=== PATIENT | female | born 1945 | race Caucasian/White ===

== ENCOUNTER → 2017-06-20 | Outpatient (CLI) | payer MEDICARE, BC ==
[2017-06-20 12:11] LABS: HCT 40.9 % (34.0-46.0); HGB 13.2 gm/dL (11.4-16.0); MCH 29.5 pg (25.0-35.0); MCHC 32.3 g/dL (31.0-37.0); MCV 91.4 fL (80.0-100.0); Mean Platelet Volume 7.9; Platelet Count 295 k/uL (150-450); RBC 4.48 m/uL (3.80-5.40); WBC 7.4 k/uL (3.8-10.6)
[2017-06-20 12:25] LABS: Calcium 9.4 mg/dL (8.4-10.2); Potassium 4.5 mmol/L (3.5-5.1); Total Bilirubin 0.4 mg/dL (0.2-1.3); Total Protein 6.6 g/dL (6.3-8.2)
[2017-06-20 12:28] LABS: Appearance,Urine Cloudy (Clear); Bacteria,Urine Rare /hpf; Bilirubin,Urine Negative (Negative); Blood,Urine Negative (Negative); Color,Urine Yellow; Glucose,Urine (UA) Negative (Negative); Hyaline Casts,Urine 3 /lpf (0-2); Ketones,Urine Negative (Negative); Leukocyte Esterase,Urine Large (Negative); Mucus,Urine Rare /hpf; Nitrite,Urine Negative (Negative); PH, Urine 5.5 (5.0-8.0); Protein,Urine Trace (Negative); RBC,Urine 1 /hpf (0-5); Squamous Epithelial Cell,Urine 5 /hpf (0-4); WBC,Urine 19 /hpf (0-5)
[2017-06-20 12:30] LABS: INR 0.9 (<1.2); Prothrombin Time 9.4 sec (9.0-12.0)
[2017-06-20 12:35] LABS: Partial Thromboplastin Time 20.5 sec (22.0-30.0)
== END | disposition home or self-care (01) ==
LOC: LABWHC1 11:10
PROVIDERS: ATTEND Orthopaedic Surgery
DX: Z01.812 Encounter for preprocedural laboratory examination (principal)
CPT/HCPCS: 36415; 80053; 81001; 85027; 85610; 85730; 87070

== ENCOUNTER 2017-07-10 10:55 | Inpatient (IN) | payer MEDICARE, BC ==
[2017-07-02 13:06] VITALS: BMI 34.4
[2017-07-13] MEDS ORDERED: ceFAZolin IN SWFI 2 GM/20 ML SYRINGE IVP ONE (05:00)
[2017-07-13] MEDS ORDERED: HYDROmorphone 0.5 MG/0.5 ML SYRINGE IVP PRN (05:46)
[2017-07-13] MEDS ORDERED: MIDAZOLAM 2 MG/2 ML VIAL IV PRN (05:46)
[2017-07-13] MEDS ORDERED: LIDOCAINE 1% 20 ML VIAL (10MG/ML) FOR IV START INTRADERMA PRN (05:46)
[2017-07-13] MEDS ORDERED: ONDANSETRON 4 MG/2 ML VIAL IVP ONE (05:46)
[2017-07-13] MEDS ORDERED: SCOPOLAMINE 1.5MG/72HR PATCH TRANSDERM ONE (05:46)
[2017-07-13] MEDS ORDERED: DEXAMETHASONE SOD PHOSPHATE 10 MG/ML 1 ML VIAL IV ONE (05:46)
[2017-07-13] MEDS: LACTATED RINGERS 1,000 ML IV SCH ×3 (06:58→21:17)
[2017-07-13] MEDS ORDERED: HYDROmorphone (PF) 1 MG/ML ONE (07:47)
[2017-07-13] MEDS ORDERED: ePHEDrine SULFATE/0.9% NACL/PF 50 MG/5 ML SYRINGE IV ONE (07:47)
[2017-07-13] MEDS ORDERED: MIDAZOLAM 2 MG/2 ML VIAL ONE (07:47)
[2017-07-13] MEDS ORDERED: PROPOFOL 10 MG/ML 20 ML VIAL IV ONE (07:47)
[2017-07-13] MEDS ORDERED: fentaNYL (PF) 50 MCG/ML 2 ML AMP ONE (07:47)
[2017-07-13] MEDS ORDERED: ceFAZolin 3,000 MG in SODIUM CHLORIDE 0.9% IRRIGATIO 3,000 ML IRRIGATION ONE (08:33)
[2017-07-13] MEDS ORDERED: LACTATED RINGERS 1,000 ML IV ONE (08:52)
[2017-07-13] MEDS ORDERED: ONDANSETRON 4 MG/2 ML VIAL IVP PRN (10:23)
[2017-07-13] MEDS ORDERED: HYDROcodone/APAP 5-325MG 1 EACH TAB PO PRN (10:23)
[2017-07-13] MEDS ORDERED: MORPHINE SULFATE 2 MG/ML SYRINGE IVP PRN ×3 (10:23)
[2017-07-13] MEDS ORDERED: ACETAMINOPHEN TAB 325 MG TAB PO PRN (10:23)
[2017-07-13] MEDS ORDERED: NA PHOS,M-B/NA PHOS,DI-BA 133 ML ENEMA RECTAL PRN (10:23)
[2017-07-13] MEDS ORDERED: hydrOXYzine PAMOATE 25 MG CAP PO PRN (10:23)
[2017-07-13] MEDS ORDERED: BISACODYL 10 MG SUPP RECTAL PRN (10:23)
[2017-07-13] MEDS ORDERED: TEMAZEPAM 15 MG CAP PO PRN (10:23)
[2017-07-13] MEDS ORDERED: MAGNESIUM HYDROXIDE 2,400 MG/10 ML CUP PO PRN (10:23)
[2017-07-13] MEDS ORDERED: NALOXONE 0.4 MG/ML 1 ML VIAL IV PRN (10:23)
[2017-07-13] MEDS: fentaNYL (PF) 50 MCG/ML 2 ML AMP IVP ONE ×2 (10:30→10:39)
--- NOTE | 2017-07-13 10:40 | XR ---
EXAMINATION TYPE: XR knee limited LT DATE OF EXAM: 07/13/2017 CLINICAL HISTORY: Left knee pain and arthritis status post total knee replacement. TECHNIQUE: Portable AP and crosstable lateral views of the left knee are obtained immediately postop eratively. COMPARISON: None FINDINGS: [place] osseous structures are demineralized. Metallic hardware from total left knee arthro plasty is seen and appears satisfactory in alignment and position. There is evidence of recent surge ry with diffuse subcutaneous gas and soft tissue swelling noted. Posterior vascular calcification is incidentally seen IMPRESSION: METALLIC HARDWARE FROM TOTAL LEFT KNEE ARTHROPLASTY IS SATISFACTORY IN ALIGNMENT.
[2017-07-13] MEDS: HYDROcodone/APAP 5-325MG 1 EACH TAB PO PRN ×2 (14:29→21:15)
--- NOTE | 2017-07-13 17:08 | P.CONS ---
History of Present Illness - Reason for Consult Recommendations regarding hypertensive medications. - History of Present Illness Patient is a pleasant 71-year-old female admitted for left knee arthroplasty successfully underwent surgery patient denied any pain in the knee. Patient did not pass gas yet did not move her bowel yet. Patient is otherwise clinically doing well without any symptoms. Patient the blood pressure is on the low normal side which is expected post surgery but had systolics as still as low as 90s patient is receiving IV fluids. Patient is on lisinopril and hydrocodone for his accommodation for hypertension. Upon extensive history from the patient it does not appear patient has any essential hypertension patient blood pressure is always low at home. Patient appears to have whitecoat hypertension along with blood pressure elevation when she was depressed after her son's . I do not believe patient will need to be treated for whitecoat hypertension or anxiety with any antidepressant medications as of now she is not requiring any antidepressive medications and even after discharge I do not believe she'll require any antidepressive medications. Patient will be advised to check the blood pressure at home. And discontinue antidepressive medications at this time. Review of Systems REVIEW OF SYSTEMS: CONSTITUTIONAL: No fever, no malaise, no fatigue. HEENT: No recent visual problems or hearing problems. Denied any sore throat. CARDIOVASCULAR: No chest pain, orthopnea, PND, no palpitations, no syncope. PULMONARY: No shortness of breath, no cough, no hemoptysis. GASTROINTESTINAL: No diarrhea, no nausea, no vomiting, no abdominal pain. Normoactive bowel sounds. NEUROLOGICAL: No headaches, no weakness, no numbness. HEMATOLOGICAL: Denies any bleeding or petechiae. GENITOURINARY: Denies any burning micturition, frequency, or urgency. MUSCULOSKELETAL/RHEUMATOLOGICAL: Denies any joint pain, swelling, or any muscle pain. ENDOCRINE: Denies any polyuria or polydipsia. The rest of the 14-point review of systems is negative. Past Medical History Past Medical History: Hypertension, Osteoarthritis (OA) Additional Past Medical History / Comment(s): KIDNEY DISEASE. RECENT ANTIBIOTICS FOR UTI FROM 06/20/17 History of Any Multi-Drug Resistant Organisms: None Reported Past Surgical History: Hysterectomy Additional Past Surgical History / Comment(s): total left knee arthroplasty Past Anesthesia/Blood Transfusion Reactions: Motion Sickness Past Psychological History: No Psychological Hx Reported Smoking Status: Never smoker Past Alcohol Use History: None Reported Past Drug Use History: None Reported - Past Family History Mother Family Medical History: No Reported History Medications and Allergies Home Medications Medication Instructions Recorded Confirmed Type Aspirin 650 mg PO BID 07/02/17 07/13/17 History Cholecalciferol [Vitamin D3] 1,000 unit PO DAILY 07/02/17 07/13/17 History Glucosam/Chond/Hyalu/Cf Borate 1 tab PO DAILY 07/02/17 07/13/17 History [Move Free Joint Health Tablet] Lisinopril-Hctz 10-12.5 mg 1 tab PO DAILY 07/02/17 07/13/17 History [Zestoretic 10-12.5] Powers-3 Fatty Acids [[place]-3] 1,000 mg PO DAILY 07/02/17 07/13/17 History Vitamin B Complex 1 cap PO DAILY 07/02/17 07/13/17 History Acetaminophen Tab [Tylenol Tab] 650 mg PO Q4H PRN 07/13/17 07/13/17 History Aspirin 325 mg PO DAILY #30 tab 07/13/17 Rx HYDROcodone/APAP 5-325MG [[place] 5] 1 - 2 each PO Q4-6H PRN #90 tab 07/13/17 Rx Sennosides-Docusate Sodium 2 tab PO DAILY #30 tablet 07/13/17 Rx [Senokot-S] Warfarin [Coumadin] 2.5 mg PO DIRECTED #30 tab 07/13/17 Rx Allergies Allergy/AdvReac Type Severity Reaction Status Date / Time carvedilol [From Coreg] Allergy Rash/Hives Verified 07/13/17 07:05 cocamidopropyl betaine Allergy blisters Verified 07/13/17 06:34 gold sodium thiomalate Allergy blisters Verified 07/13/17 06:34 nickel Allergy blisters Verified 07/13/17 06:34 Physical Exam Vitals: Vital Signs Temp Pulse Pulse Resp BP BP Pulse Ox 07/13/17 14:55 97.4 F L 94 18 96/61 07/13/17 13:51 97.5 F L 84 16 105/63 07/13/17 13:30 84 105/63 07/13/17 13:15 86 96/56 07/13/17 13:00 87 97/65 07/13/17 12:45 93 99/68 07/13/17 12:30 89 120/71 07/13/17 12:15 89 119/73 07/13/17 12:00 81 113/73 07/13/17 11:45 88 119/75 07/13/17 11:30 97.3 F L 93 16 105/72 99 07/13/17 11:05 85 16 104/56 99 07/13/17 10:50 91 16 111/56 100 07/13/17 10:35 82 16 115/58 99 07/13/17 10:20 96.9 F L 83 16 115/59 97 07/13/17 06:53 98 F 68 16 137/68 99 Intake and Output 07/13/17 07/13/17 07/13/17 06:59 14:59 22:59 Intake Total 100 1701 Output Total 425 Balance 100 1276 Intake: IV 100 1701 Lactated Ringers 1,000 ml 200 @ 100 mls/hr IV .Q10H LETY Rx#:[id number] Output: Urine 400 Estimated Blood Loss 25 Other: Weight 99.79 kg PHYSICAL EXAMINATION: GENERAL: The patient is alert and oriented x3, not in any acute distress. Well developed, well nourished. HEENT: Pupils are round and equally reacting to light. EOMI. No scleral icterus. No conjunctival pallor. Normocephalic, atraumatic. No pharyngeal erythema. No thyromegaly. CARDIOVASCULAR: S1 and S2 present. No murmurs, rubs, or gallops. PULMONARY: Chest is clear to auscultation, no wheezing or crackles. ABDOMEN: Soft, nontender, nondistended, normoactive bowel sounds. No palpable organomegaly. MUSCULOSKELETAL: Deferred to orthopedic surgery EXTREMITIES: No cyanosis, clubbing, or pedal edema. NEUROLOGICAL: Gross neurological examination did not reveal any focal deficits. SKIN: No rashes. Assessment and Plan Plan: -Hypertension: Patient is presently hypotensive I do not believe patient has essential hypertension further management as mentioned above continue with IV fluids discontinue antidepressive medications. -Severe osteoarthritis for which patient underwent left knee arthroplasty due to prophylaxis and pain management as per primary service as patient is already receiving Coumadin or disc in your aspirin upon discharge.
[2017-07-13] MEDS: ceFAZolin IN SWFI 2 GM/20 ML SYRINGE IVP SCH (17:31)
[2017-07-13] MEDS ORDERED: WARFARIN 5 MG TAB PO SCH (18:00)
[2017-07-13] MEDS: SENNOSIDES-DOCUSATE SODIUM 1 EACH TAB PO SCH (21:16)
[2017-07-14] MEDS: ceFAZolin IN SWFI 2 GM/20 ML SYRINGE IVP SCH (02:01)
[2017-07-14] MEDS: HYDROcodone/APAP 5-325MG 1 EACH TAB PO PRN ×4 (05:01→17:37)
[2017-07-14 08:00] LABS: INR 1.6 (<1.2); Prothrombin Time 14.4 sec (9.0-12.0)
[2017-07-14 08:10] LABS: Basophils % (A) 0 %; Eosinophils % (A) 0 %; HCT 31.1 % (34.0-46.0); Lymphocytes # (A) 1.1 k/uL (1.0-4.8); Lymphocytes % (A) 11 %; MCH 30.4 pg (25.0-35.0); MCHC 32.3 g/dL (31.0-37.0); MCV 94.2 fL (80.0-100.0); Mean Platelet Volume 7.3; Monocytes % (A) 9 %; Neutrophils % (A) 78 %; Platelet Count 231 k/uL (150-450); RDW 14.6 % (11.5-15.5); WBC 10.2 k/uL (3.8-10.6)
[2017-07-14] MEDS: LACTATED RINGERS 1,000 ML IV SCH ×3 (10:23→18:06)
--- NOTE | 2017-07-14 12:23 | P.PN ---
Subjective Progress Note Date: 07/14/17 Principal diagnosis: Left TKA Patient is seen at bedside this morning. She is postop day #1 from Left Total Knee arthroplasty. She has pain at the surgical site as expected but denies any new complaints. She denies numbness, tingling or calf pain. Review of systems is negative for fever, chills, chest pain, shortness of breath or other Objective - Vital Signs Vital signs: Vital Signs Temp 98.5 F 07/14/17 09:00 Pulse 79 07/14/17 09:00 Resp 18 07/14/17 07:54 BP 100/61 07/14/17 09:00 Pulse Ox 93 L 07/14/17 07:00 Intake & Output 07/13/17 07/14/17 07/14/17 18:59 06:59 18:59 Intake Total 1701 Output Total 425 Balance 1276 Weight 99.79 kg 99.79 kg Intake: IV 1701 Lactated Ringers 1,000 ml 200 @ 100 mls/hr IV .Q10H LETY Rx#:[id number] Output: Urine 400 Estimated Blood Loss 25 Other: # Voids 3 - Exam Inspection reveals a benign surgical wound. There is no active bleeding or drainage. Neurovascular status is intact throughout the lower extremity with motor and sensation fully intact. Calf is soft and nontender. 2+ dorsalis pedis pulse and less than 2 second cap refill is present - Constitutional General appearance: Present: no acute distress - Psychiatric Psychiatric: Present: A&O x's 3, appropriate affect, intact judgment & insight - Labs CBC & Chem 7: 07/14/17 07:11 Labs: Abnormal Lab Results - Last 24 Hours (Table) 07/14/17 07/14/17 Range/Units 07:11 07:11 RBC 3.30 L (3.80-5.40) m/uL Hgb 10.0 L D (11.4-16.0) gm/dL Hct 31.1 L (34.0-46.0) % Neutrophils # 8.0 H (1.3-7.7) k/uL PT 14.4 H (9.0-12.0) sec INR 1.6 H (<1.2) Assessment and Plan (1) S/P total knee arthroplasty Narrative/Plan: She will continue with routine postop orthopedic protocol including pain management, wound care, physical therapy, DVT prophylaxis and medical management. Expect that she will transfer to rehab in next few days. Current Visit: Yes Status: Acute Priority: Medium Code(s): Z96.659 - PRESENCE OF UNSPECIFIED ARTIFICIAL KNEE JOINT SNOMED Code(s): 8559360841279 Time with Patient: Less than 30
--- NOTE | 2017-07-14 13:19 | P.PN ---
Subjective No overnight events patient is clinically doing well blood pressure remains in 100s systolic I do not believe patient will need any antidepressant medications upon discharge. Constitutional: Denied any fatigue denied any fever. Cardio vascular: denied any chest pain, palpitations Gastrointestinal denied any nausea vomiting Pulmonary: Denied any shortness of breath cough Neurologic denied any new focal deficits Objective - Vital Signs Vital signs: Vital Signs Temp 98.5 F 07/14/17 09:00 Pulse 79 07/14/17 09:00 Resp 18 07/14/17 07:54 BP 100/61 07/14/17 09:00 Pulse Ox 93 L 07/14/17 07:00 Intake & Output 07/13/17 07/14/17 07/14/17 18:59 06:59 18:59 Intake Total 1701 Output Total 425 Balance 1276 Weight 99.79 kg 99.79 kg Intake: IV 1701 Lactated Ringers 1,000 ml 200 @ 100 mls/hr IV .Q10H LETY Rx#:[id number] Output: Urine 400 Estimated Blood Loss 25 Other: # Voids 3 - Exam PHYSICAL EXAMINATION: GENERAL: The patient is alert and oriented x3, not in any acute distress. Well developed, well nourished. HEENT: Pupils are round and equally reacting to light. EOMI. No scleral icterus. No conjunctival pallor. Normocephalic, atraumatic. No pharyngeal erythema. No thyromegaly. CARDIOVASCULAR: S1 and S2 present. No murmurs, rubs, or gallops. PULMONARY: Chest is clear to auscultation, no wheezing or crackles. ABDOMEN: Soft, nontender, nondistended, normoactive bowel sounds. No palpable organomegaly. MUSCULOSKELETAL: Deferred to orthopedic surgery EXTREMITIES: No cyanosis, clubbing, or pedal edema. NEUROLOGICAL: Gross neurological examination did not reveal any focal deficits. SKIN: No rashes. - Labs CBC & Chem 7: 07/14/17 07:11 Labs: Abnormal Lab Results - Last 24 Hours (Table) 07/14/17 07/14/17 Range/Units 07:11 07:11 RBC 3.30 L (3.80-5.40) m/uL Hgb 10.0 L D (11.4-16.0) gm/dL Hct 31.1 L (34.0-46.0) % Neutrophils # 8.0 H (1.3-7.7) k/uL PT 14.4 H (9.0-12.0) sec INR 1.6 H (<1.2) Assessment and Plan Plan: -Hypertension: Patient is presently hypotensive I do not believe patient has essential hypertension further management as mentioned above continue with IV fluids discontinue antidepressive medications. -Severe osteoarthritis for which patient underwent left knee arthroplasty due to prophylaxis and pain management as per primary service as patient is already receiving Coumadin, aspirin can be discussed in your upon discharge, unless recommended by orthopedic surgery
[2017-07-14] MEDS ORDERED: WARFARIN 5 MG TAB PO ONE (18:00)
[2017-07-14 20:20] VITALS: RESP 16
[2017-07-14] MEDS: SENNOSIDES-DOCUSATE SODIUM 1 EACH TAB PO SCH (20:32)
[2017-07-15] MEDS: HYDROcodone/APAP 5-325MG 1 EACH TAB PO PRN ×4 (00:05→19:23)
[2017-07-15] MEDS: LACTATED RINGERS 1,000 ML IV SCH ×6 (02:34→23:28)
[2017-07-15 07:05] LABS: INR 2.2 (<1.2); Prothrombin Time 20.1 sec (9.0-12.0)
--- NOTE | 2017-07-15 12:42 | P.PN ---
Subjective Progress Note Date: 07/15/17 Principal diagnosis: Left TKA Patient is seen at bedside this morning. She is postop day #2 from Left Total Knee arthroplasty. She has pain at the surgical site as expected but denies any new complaints. She denies numbness, tingling or calf pain. Review of systems is negative for fever, chills, chest pain, shortness of breath or other Objective - Vital Signs Vital signs: Vital Signs Temp 98.1 F 07/15/17 07:00 Pulse 78 07/15/17 07:00 Resp 16 07/15/17 07:00 BP 99/63 07/15/17 07:00 Pulse Ox 96 07/15/17 07:00 Intake & Output 07/14/17 07/15/17 07/15/17 18:59 06:59 18:59 Intake Total 1000 1700 180 Balance 1000 1700 180 Weight 99.79 kg Intake: Intake, IV Titration 500 1200 Amount Lactated Ringers 1,000 ml 500 1200 @ 100 mls/hr IV .Q10H LETY Rx#:[id number] Oral 500 500 180 Other: # Voids 3 1 - Exam Inspection reveals a benign surgical wound. There is no active bleeding or drainage. Neurovascular status is intact throughout the lower extremity with motor and sensation fully intact. Calf is soft and nontender. 2+ dorsalis pedis pulse and less than 2 second cap refill is present - Constitutional General appearance: Present: no acute distress - Labs CBC & Chem 7: 07/14/17 07:11 Labs: Abnormal Lab Results - Last 24 Hours (Table) 07/15/17 Range/Units 06:44 PT 20.1 H (9.0-12.0) sec INR 2.2 H (<1.2) Assessment and Plan (1) S/P total knee arthroplasty Narrative/Plan: She will continue with routine postop orthopedic protocol including pain management, wound care, physical therapy, DVT prophylaxis and medical management. Expect that she will transfer to rehab in next few days. Current Visit: Yes Status: Acute Priority: Medium Code(s): Z96.659 - PRESENCE OF UNSPECIFIED ARTIFICIAL KNEE JOINT SNOMED Code(s): 3752831705884 Time with Patient: Less than 30
--- NOTE | 2017-07-15 13:52 | US ---
EXAMINATION TYPE: US venous doppler duplex LE LT DATE OF EXAM: 07/15/2017 1:46 PM COMPARISON: NONE CLINICAL HISTORY: calf pain. History of left knee surgery 2 days ago. SIDE PERFORMED: Left TECHNIQUE: The lower extremity deep venous system is examined utilizing real time linear array sonog som with graded compression, doppler sonography and color-flow sonography. VESSELS IMAGED: External Iliac Vein (EIV) Common Femoral Vein Deep Femoral Vein Greater Saphenous Vein * Femoral Vein Popliteal Vein Small Saphenous Vein * Proximal Calf Veins, not well seen due to body habitus and swelling (* superficial vessels) Patient of large body habitus with leg swelling. Left Leg: Negative for DVT Grayscale, color doppler, spectral doppler imaging performed of the deep veins of the left lower ext remity. There is normal flow, compressibility, vascular waveforms. IMPRESSION: Suboptimal study without convincing evidence for acute DVT in the left lower extremity.
[2017-07-15] MEDS ORDERED: WARFARIN 2.5 MG TAB PO ONE (18:00)
[2017-07-15] MEDS: SENNOSIDES-DOCUSATE SODIUM 1 EACH TAB PO SCH (19:33)
[2017-07-16 00:05] VITALS: PULSE 85
[2017-07-16] MEDS: HYDROcodone/APAP 5-325MG 1 EACH TAB PO PRN ×2 (02:51→09:14)
[2017-07-16 07:01] LABS: Basophils % (A) 0 %; Eosinophils # (A) 0.3 k/uL (0-0.7); Eosinophils % (A) 3 %; HCT 27.9 % (34.0-46.0); Lymphocytes # (A) 1.9 k/uL (1.0-4.8); Lymphocytes % (A) 19 %; MCH 30.3 pg (25.0-35.0); MCHC 32.1 g/dL (31.0-37.0); MCV 94.3 fL (80.0-100.0); Mean Platelet Volume 7.1; Monocytes % (A) 10 %; Neutrophils # (A) 6.4 k/uL (1.3-7.7); Neutrophils % (A) 66 %; Platelet Count 219 k/uL (150-450); RBC 2.96 m/uL (3.80-5.40); RDW 14.7 % (11.5-15.5); WBC 9.8 k/uL (3.8-10.6)
[2017-07-16 07:07] LABS: INR 1.9 (<1.2); Prothrombin Time 17.4 sec (9.0-12.0)
--- NOTE | 2017-07-16 08:37 | P.DS ---
Providers Date of admission: 07/13/17 06:17 Expected date of discharge: 07/16/17 Attending physician: Akshat Narvaez Consults: 07/13/17 10:23 Consult Physician Routine Consulting Provider: Fransico Busch Consult Reason/Comments: medical management Do you want consulting provider notified?: Yes Primary care physician: Stated None - Discharge Diagnosis(es) (1) Primary osteoarthritis of left knee Current Visit: Yes Status: Acute (2) Status post left knee replacement Current Visit: Yes Status: Acute Hospital Course: This is a pleasant 71-year-old female last seen in our office with complaints of left knee pain. Patient has known history of degenerative arthritis of the left knee and presented to discuss options. After discussion and consideration , the patient elected to proceed with a left total knee arthroplasty. Patient was seen preoperatively, and medically cleared for surgery by her primary care physician. Patient was admitted to [facility] underwent left total knee arthroplasty on 07/13/[address] Narvaez. The procedure was performed without complications or sequelae. The patient is seen and evaluated at bedside today. Pain is well-controlled. Patient has no new complaints today and denies any fevers, chills, nausea, vomiting, or shortness of breath. Vital signs are stable. Dressing is clean dry and intact. Incision looks fine with no erythema or active drainage. Calf is soft and nontender. Patient has full foot and ankle motion without difficulty. Patient's left lower extremity is neurovascularly intact. The patient is orthopedically stable for discharge today. Pertinent Studies: Laboratory Tests 07/16/17 07/16/17 06:27 06:27 WBC 9.8 RBC 2.96 L Hgb 9.0 L Hct 27.9 L PT 17.4 H INR 1.9 H Patient Condition at Discharge: Stable Plan - Discharge Summary Discharge Rx Participant: Yes New Discharge Prescriptions: New Aspirin 325 mg PO DAILY #30 tab HYDROcodone/APAP 5-325MG [[place] 5] 1 - 2 each PO Q4-6H PRN #90 tab PRN Reason: Pain Sennosides-Docusate Sodium [Senokot-S] 2 tab PO DAILY #30 tablet Warfarin [Coumadin] 2.5 mg PO DIRECTED #30 tab Discontinued Lisinopril-Hctz 10-12.5 mg [Zestoretic 10-12.5] 1 tab PO DAILY Aspirin 650 mg PO BID No Action Cholecalciferol [Vitamin D3] 1,000 unit PO DAILY Vitamin B Complex 1 cap PO DAILY [place]-3 Fatty Acids [[place]-3] 1,000 mg PO DAILY Glucosam/Chond/Hyalu/Cf Borate [Move Free Joint Health Tablet] 1 tab PO DAILY Acetaminophen Tab [Tylenol Tab] 650 mg PO Q4H PRN PRN Reason: Pain Discharge Medication List Cholecalciferol [Vitamin D3] 1,000 unit PO DAILY 07/02/17 [History] Glucosam/Chond/Hyalu/Cf Borate [Move Free Joint Health Tablet] 1 tab PO DAILY [History] [place]-3 Fatty Acids [[place]-3] 1,000 mg PO DAILY 07/02/17 [History] Vitamin B Complex 1 cap PO DAILY 07/02/17 [History] Acetaminophen Tab [Tylenol Tab] 650 mg PO Q4H PRN 07/13/17 [History] Aspirin 325 mg PO DAILY #30 tab 07/13/17 [Rx] HYDROcodone/APAP 5-325MG [[place] 5] 1 - 2 each PO Q4-6H PRN #90 tab 07/13/17 [Rx] Sennosides-Docusate Sodium [Senokot-S] 2 tab PO DAILY #30 tablet 07/13/17 [Rx] Warfarin [Coumadin] 2.5 mg PO DIRECTED #30 tab 07/13/17 [Rx] Follow up Appointment(s)/Referral(s): Akshat Narvaez DO [Doctor of Osteopathic Medicine] - 2 Weeks [facility], [NON-STAFF] - Ambulatory/Diagnostic Orders: Continuous Passive Motion (CPM) Machine [DME.AMB1] Time Frame: 3 Weeks, Location : Determined By Patient Activity/Diet/Wound Care/Special Instructions: [facility] - will deliver CPM to home after discharge - call once home: [phone] [place] [facility] - will deliver to bedside before discharge Weightbearing as tolerated with a walker Coumadin 2.5 mg 1 by mouth every other day for 7 days then take Aspirin 325mg daily for 1 month CPM 5-6 hours daily-Start CPM at 45 degrees then increase by 5 degrees every time on CPM as patient tolerates. Maximum total of 15 degrees every 24 hours. May shower in 3 days if no drainage from incision Keep incision clean and dry Call [facility] at with questions or concerns Discharge Disposition: HOME WITH HOME HEALTH SERVICES
[2017-07-16 10:18] VITALS: BP 97/62; TEMP 98.4
[2017-07-16] MEDS: LACTATED RINGERS 1,000 ML IV SCH (10:42)
--- NOTE | 2017-07-16 11:53 | OP ---
OPERATIVE REPORT DATE OF SERVICE: 07/13/2017. SURGEON: Akshat Narvaez DO METAL SPRAYER PRODUCTION: Gena Diop NP. PREOPERATIVE DIAGNOSIS: Severe tricompartment degenerative joint disease of the left knee. POSTOPERATIVE DIAGNOSIS: Severe tricompartment degenerative joint disease of the left knee. PROCEDURE PERFORMED: Left total knee replacement arthroplasty utilizing the [employer] Complete Knee Solution System/LPS-Flex components. DESCRIPTION OF PROCEDURE: The patient was taken to the operative suite and placed in supine position. Spinal anesthesia is performed by the department of anesthesiology. Betadine prep is carried out over the left knee mid thigh tot mid calf. Sterile drapes applied in the usual manner. A medial parapatellar incision was developed. The medical retinaculum was incised as well as the synovium. The patella was everted and dislocated laterally and the knee brought in flexion position and held in a leg haddad. The tibial cutting guide and jig was utilized for appropriate cuts in preparation of the tibia. The tibial cut was made in both the medial and lateral menisci. A size 5 tibial component was then selected. A 10 mm spacer was utilized and the tibial tray. The appropriate intramedullary guide in preparation for the final component was impacted into the tibia proximally and the appropriate drill hole was utilized. The was then everted in preparation for a size 15 mm patella for the the purpose of stabilizing. Then the provision components were removed. Pulsavac antibiotic solution was utilized in preparation for final components. The left tibial component was then prepared and placed in position. The excess cement was removed. The size F left tibial component was impacted into position. The size 32 was cemented and passed into the predrilled peg hole. The tibial tray was held in position and positioned over the leg was stabilized while it was cemented. The knee was in place and full in flexion. Hemostasis was controlled and the superficial ligaments with electrocautery. The knee was irrigated copiously with Pulsavac antibiotic solution. Medial retinaculum was then approximately #3 Vicryl suture horizontal mattress fashion. A #2 Quill suture was utilized in reinforcing in a running fashion. 2-0 Vicryl sutures were divided in closure of the subcutaneous tissue. A 3-0 Quill suture was utilized in subcutaneous closure. Dermabond was utilized in closing the wound. Betadine and sterile pressure dressing were applied. Pneumatic tourniquet was deflated. The patient was then transferred to the recovery room in satisfactory postop condition. GROSS PATHOLOGY: There is severe tricompartment degenerative joint disease of the left knee. [employer] Complete knee Solution System was utilized, DEVI / JOHAN: [id number] / [id number]
--- NOTE | 2017-07-16 12:39 | P.PN ---
Subjective Progress Note Date: 07/16/17 Progress note being dictated for Dr. Cotton. Interval history: This is a 71-year-old female status post left knee replacement for severe osteoarthritis. Systolic blood pressure ranging from high 90s to low 120s. Patient has been up with physical therapy, tolerated well , denies lightheadedness dizziness or focal deficits. Denies chest pain, palpitations or shortness of breath. Passing flatus, no bowel movement. Anticipating discharge home today as per orthopedics surgery. Objective - Vital Signs Vital signs: Vital Signs Temp 98.4 F 07/16/17 09:11 Pulse 85 07/16/17 09:11 Resp 16 07/16/17 09:11 BP 97/62 07/16/17 09:11 Pulse Ox 98 07/16/17 09:11 Intake & Output 07/15/17 07/16/17 07/16/17 18:59 06:59 18:59 Intake Total 597 600 Balance 597 600 Intake: Oral 597 600 Other: # Voids 1 # Bowel Movements 1 - Exam GENERAL: The patient is sitting up in bed, alert and oriented x3, not in any acute distress. Well developed, well nourished. HEENT: Pupils are round and equally reacting to light. EOMI. No scleral icterus. No conjunctival pallor. Normocephalic, atraumatic. No pharyngeal erythema. No thyromegaly. CARDIOVASCULAR: S1 and S2 present. No murmurs, rubs, or gallops. PULMONARY: Chest is clear to auscultation, no wheezing or crackles. ABDOMEN: Soft, nontender, nondistended, normoactive bowel sounds. No palpable organomegaly. MUSCULOSKELETAL: Deferred to orthopedic surgery EXTREMITIES: No clubbing, or pedal edema. NEUROLOGICAL: Gross neurological examination did not reveal any focal deficits. SKIN: No rashes. - Labs CBC & Chem 7: 07/16/17 06:27 Labs: Abnormal Lab Results - Last 24 Hours (Table) 07/16/17 07/16/17 Range/Units 06:27 06:27 RBC 2.96 L (3.80-5.40) m/uL Hgb 9.0 L (11.4-16.0) gm/dL Hct 27.9 L (34.0-46.0) % PT 17.4 H (9.0-12.0) sec INR 1.9 H (<1.2) Assessment and Plan Assessment: -Hypertension: Patient is presently hypotensive I do not believe patient has essential hypertension further management as mentioned above continue with IV fluids discontinue antidepressive medications. -Severe osteoarthritis for which patient underwent left knee arthroplasty due to prophylaxis and pain management as per primary service as patient is already receiving Coumadin, aspirin can be discussed in your upon discharge, unless recommended by orthopedic surgery Plan: Continue on current medication regime ,monitoring and symptomatic treatment. Antihypertensives remain on hold. Anticoagulation and pain management as per primary service. Discharge planning in progress for today as per orthopedic surgery. Follow-up with PCP in 1 week. Aggressive pulmonary toileting reinforced. The impression and plan of care has been dictated as directed. : I performed a history and examination of this patient, discussed the same with the dictator. I agree with the dictator's note ,documented as a scribe. Any additional findings or plans will be noted.
[2017-07-16] MEDS ORDERED: WARFARIN 7.5 MG TAB PO ONE (18:00)
== END 2017-07-16 12:20 | disposition home health service (06) | DRG 470 ==
LOC: 2ORMAIN 07-13 06:17 → 3SUR 07-13 10:38
PROVIDERS: ADMIT Orthopaedic Surgery; ATTEND Orthopaedic Surgery
PROC: 0SRD0J9 Replacement of Left Knee Joint with Synthetic Substitute, Cemented, Open Approach (ICD-10-PCS; principal; 2017-07-13 08:00)
DX: M17.0 Bilateral primary osteoarthritis of knee (principal); Z79.01 Long term (current) use of anticoagulants; Z79.82 Long term (current) use of aspirin; Z90.710 Acquired absence of both cervix and uterus; Z79.899 Other long term (current) drug therapy; Z83.3 Family history of diabetes mellitus; Z82.49 Family history of ischemic heart disease and other diseases of the circulatory system; I95.9 Hypotension, unspecified; Z88.8 Allergy status to other drugs, medicaments and biological substances
CPT/HCPCS: 85025; 85610; 88300